=== PATIENT | female | born 1950 | race Caucasian/White ===

== ENCOUNTER → 2018-05-02 | Outpatient (CLI) | payer OTHER ==
[~2018-05-02] MED LIST: ATORVASTATIN CA80 MG PO; CARV6.2511 PO; LISI10TA2 PO; PRAS10TA9 PO
--- NOTE | 2018-05-02 11:38 | PAIN ---
DATE OF SERVICE: 05/02/2018 INITIAL CONSULTATION FOR PAIN CLINIC CHIEF COMPLAINT: Left lower extremity pain. HISTORY OF PRESENT ILLNESS: This is a 68-year-old female who presents with history of pain since September 2017, not a result of any specific injury or action she is aware of but came on fairly suddenly with pain from the knee down the left side, mostly in the anterior aspect of the thighs, sometimes into the calf as well, started at the top of the foot and into the entire foot now with the toes and all the toes as well. The patient reports it feels she has a sock that is crumpled up underneath her toes when she is walking. The patient reports it is constant tingling pain, burning pain in the leg as well. Occasional pain across the low back but only intermittently and this occasionally can travel into the posterior gluteus and thigh but mostly just in the lower leg below the knee. The patient reports it is worse with walking significantly even greater than about 10 minutes. The patient reports she sits down and stops or stops walking, the pain decreases significantly by about 80%. The patient reports this has been tingling and numb since September and without any loss of motor function. The patient has not had any formal physical therapies or other treatments. She is doing exercises on her own. The patient reports it does not awaken her from sleep at night, feels better with lying down, does not affect her bowel or bladder control but does affect her ability to walk. She is not using any assistive devices. The patient have MRI scan showing some degenerative changes throughout the L3-L4, L4-L5 and L5-S1 disk spaces, but without significant stenosis. The patient rates her disability rate from 0-10, 10 being the worst, is a 6 with family and home responsibilities and recreation and is a 4 with social activity and 2 with self-care and life support activities. The patient reports no loss of motor function and no symptoms on the right lower extremity. PAST MEDICAL HISTORY: Significant for shortness of breath, coronary artery disease, peripheral vascular disease and arthritis. PAST SURGICAL HISTORY: Lumbar laminectomy x 2 in the , hernia repair in 2012 and aortobifem bypass in 1997 with multiple stents in the iliac arteries as well as in the popliteal arteries bilaterally over the years. MEDICATIONS: The patient's current medication list includes Effient, atorvastatin, lisinopril and carvedilol. ALLERGIES: The patient is allergic to PLAVIX and IV CONTRAST. FAMILY HISTORY: Significant for strokes and heart disease. SOCIAL HISTORY: The patient drinks alcohol 3-4 drinks daily, does not smoke, does not use any illegal, illicit or recreational drugs. She is and lives with her spouse, lives locally in [place], [place]. Reports she is currently retired. REVIEW OF SYSTEMS: The patient's review of systems is positive for those items mentioned in history of present illness. All systems reviewed and otherwise negative. It is complete, full and well documented on the patient's chart. PHYSICAL EXAMINATION: VITAL SIGNS: The patient's blood pressure is 106/54, pulse is 90, respirations 18 and temperature is 98.4 degrees Fahrenheit. Height is 5 feet 10 inches and weight is 200 pounds. GENERAL: The patient is awake, alert, oriented, appropriate and very pleasant demeanor. HEENT: Head shows normocephalic and atraumatic. Extraocular movements are intact and symmetrical. Oral cavity: Mucous membranes are moist and pink. Dentition is intact. NECK: Shows anterior throat supple without palpable lymphadenopathy noted. Swallow reflex symmetrical. CHEST: Shows normal with inspection. Breath sounds clear to auscultation bilaterally. HEART: Shows S1 and S2 clear. No murmurs auscultated. ABDOMEN: Soft, nontender and nondistended. No palpable organomegaly is noted. No rebound or guarding demonstrated. BACK: Shows spine grossly in the midline. Normal-appearing thoracic kyphosis and some minor flattening of the lumbar lordotic curvature with well-healed surgical scar noted. Lumbar paraspinous muscle shows symmetrical on inspection and palpation shows some moderate tenderness diffusely throughout the middle and lower distribution of the paraspinous muscles only. The patient has good rotational motion of lumbar spine, both laterally greater than 10 degrees, right and left as well as extension greater than 10 degrees, forward flexion 45 degrees without significant pain noted. EXTREMITIES: The patient's lower extremities show deep tendon reflexes 1+ in the patellar and tendo-calcaneus tendons are equal. Motor exam is strong with 5/5 dorsiflexion and extension. Peripheral pulses are 1+ on the right posterior tibial and dorsalis pedis pulses. Left foot shows no palpable dorsalis pedis pulse and the posterior tibial is very trace at best. The patient's lower extremities show no peripheral edema noted. Color is good and normal. Right and left are equal in color and appearance. The patient has good capillary refill in the foot as well as all the toes on the left side and the foot is warm and dry to touch, equal in color and appearance to the right. Straight leg raise noted to be negative for reproduction of radicular symptoms bilaterally. Gaenslen's and Saqib's maneuvers are negative bilaterally as well. The patient is able to stand, stand on her toes without difficulty or loss of balance, walks with a normal appearing gait for short distance in the office, not using any assistive devices. The patient's skin is warm and dry, good turgor. No edema. No rashes or bruising. IMPRESSION: 1. This is a 68-year-old female with approximately 6-month history of pain in the left foot and lower extremity with significant findings with peripheral vascular disease, probably a vascular claudication by description and history. 2. MRI scan of the lumbar spine as noted. 3. Peripheral vascular disease. 4. Arthritis. 5. Shortness of breath. PLAN: Options were discussed with the patient including conservative medical management, physical therapy, interventional techniques and she is wanting to pursue a most conservative course at this time plus the patient is on Effient. She is having an evaluation with her [employer] in 2 days from now with her peripheral vascular system. We will wait and see how this is discovered and treated. We discussed with the patient does need a restenting or vascular reestablishment for her left lower extremity and the pain is still there post good revascularization and we would consider options in the future such as lumbar epidural steroid injection, but the patient would like to wait on this at this time. We will maintain her Effient and have her follow up with her [employer] in 2 days as scheduled for peripheral vascular studies. KAUR NOEL MD DR: [email or web address]/blanka JOB#: [id number] / [id number]
== END | disposition home or self-care (01) ==
LOC: PNCL 08:24
PROVIDERS: ATTEND Anesthesiology
DX: M79.605 Pain in left leg (principal); I73.89 Other specified peripheral vascular diseases; I25.10 Atherosclerotic heart disease of native coronary artery without angina pectoris; M19.90 Unspecified osteoarthritis, unspecified site
CPT/HCPCS: G0463